=== PATIENT | male | born 1970 | race Caucasian/White ===

== ENCOUNTER 2019-06-15 11:20 | Emergency (ER) | payer OTHER ==
[~2019-06-15] VITALS: Ht 170.2 cm; Wt 81.6 kg
[2019-06-15 11:30] VITALS: BP 130/81
== END 2019-06-15 13:26 | disposition home or self-care (01) ==
LOC: ER 11:20
DX: S42.035A Nondisplaced fracture of lateral end of left clavicle, initial encounter for closed fracture (principal); V47.5XXA Car driver injured in collision with fixed or stationary object in traffic accident, initial encounter; Y93.89 Activity, other specified; Y92.488 Other paved roadways as the place of occurrence of the external cause; Y99.8 Other external cause status
CPT/HCPCS: 73030

== ENCOUNTER 2023-11-22 16:21 | Emergency (ER) | payer OTHER ==
[~2023-11-22] VITALS: Ht 170.2 cm; Wt 85.2 kg
[2023-11-22] MEDS: ACETAMINOPHEN 325 MG TAB PO ONE (19:03)
[2023-11-22] MEDS ORDERED: CYCL-837 PO (19:05)
[2023-11-22] MEDS ORDERED: IBUP-1456 PO (19:05)
[2023-11-22 21:13] VITALS: BP 147/85; PULSE 83; RESP 18; TEMP 99.6; O2SAT 95
== END 2023-11-22 21:37 | disposition home or self-care (01) ==
LOC: ER 16:21
DX: S39.012A Strain of muscle, fascia and tendon of lower back, initial encounter (principal); S46.912A Strain of unspecified muscle, fascia and tendon at shoulder and upper arm level, left arm, initial encounter; S16.1XXA Strain of muscle, fascia and tendon at neck level, initial encounter; R51.9 Headache, unspecified; V43.52XA Car driver injured in collision with other type car in traffic accident, initial encounter; Y93.89 Activity, other specified; Y92.89 Other specified places as the place of occurrence of the external cause; Y99.8 Other external cause status
CPT/HCPCS: 70450; 72100; 72125; 73030